=== PATIENT | male | born 1975 | race Caucasian/White ===

== ENCOUNTER 2019-09-27 19:32 | Emergency (ER) | payer MEDICARE, OTHER ==
[2019-09-27 19:53] VITALS: BP 121/69
--- NOTE | 2019-09-27 20:36 | UC ---
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 never had strep. no swollen glands or fever + parkisnons -no rash - History of Current Complaint Chief Complaint: UCGeneralIllness Stated Complaint: SORE THROAT Time Seen by Provider: 09/27/19 20:11 Pain Intensity: 5 - Allergies/Home Medications Allergies/Adverse Reactions: Allergies Allergy/AdvReac Type Severity Reaction Status Date / Time Penicillins Allergy Intermediate Hives Verified 09/27/19 19:52 Home Medications: Home Medications Carbidopa/Levodopa [Carbidopa-Levodopa 25-100 Tab] 1 each PO BID 09/27/19 [ History Confirmed 09/27/19] Pramipexole TAB* [Mirapex TAB*] 0.5 mg PO BEDTIME 09/27/19 [History Confirmed ] PMH/Surg Hx/FS Hx/Imm Hx Previously Healthy: Yes Neurological History: Other - parkinsons - Surgical History Surgical History: Yes Surgery Procedure, Year, and Place: appendix, R shoulder x 4, R knee, hernia - Social History Alcohol Use: None Substance Use Type: None Smoking Status (MU): Former Smoker Type: Cigarettes Length of Time of Smoking/Using Tobacco: 15 yrs Have You Smoked in the Last Year: No When Did the Patient Quit Smoking/Using Tobacco: 8 years ago Review of Systems All Other Systems Reviewed And Are Negative: Yes Constitutional: Positive: Negative Skin: Positive: Negative. Negative: Rash Eyes: Positive: Negative ENT: Positive: Sore Throat Respiratory: Positive: Negative. Negative: Cough Cardiovascular: Positive: Negative Gastrointestinal: Positive: Negative Genitourinary: Positive: Negative Motor: Positive: Negative Neurovascular: Positive: Negative Musculoskeletal: Positive: Negative Neurological: Positive: Negative Psychological: Positive: Negative Is Patient Immunocompromised?: No Physical Exam Triage Information Reviewed: Yes Appearance: Ill-Appearing - mildly ill appearing, very pleasant. has a cane Vital Signs: Initial Vital Signs Temp 98.1 F 09/27/19 19:47 Pulse 64 09/27/19 19:47 Resp 16 09/27/19 19:47 BP 121/69 09/27/19 19:47 Pulse Ox 100 09/27/19 19:47 Vital Signs Reviewed: Yes Eye Exam: Normal ENT: Positive: Pharyngeal erythema, TMs normal, Uvula midline. Negative: Nasal congestion, Nasal drainage, TM bulging, TM dull, TM red, Sinus tenderness Neck exam: Normal Neck: Positive: Supple, Nontender, No Lymphadenopathy Respiratory Exam: Normal Respiratory: Positive: Chest non-tender, Lungs clear, Normal breath sounds, No respiratory distress. Negative: Crackles, Rhonchi, Stridor, Wheezing Cardiovascular Exam: Normal Cardiovascular: Positive: RRR Abdominal Exam: Normal Musculoskeletal Exam: Normal Psychological Exam: Normal Skin Exam: Normal Throat Pain/Nasal Course/Dx - Course Course Of Treatment: rapid strep is negative -likely viral in origin -supportive treatnent -f/u sooner if sx increase or persist - Differential Dx/Diagnosis Differential Diagnosis/HQI/PQRI: Laryngitis, Pharyngitis, Tonsillitis, URI Provider Diagnosis: Pharyngitis Discharge ED - Sign-Out/Discharge Documenting (check all that apply): Patient Departure All imaging exams completed and their final reports reviewed: No Studies - Discharge Plan Condition: Stable Disposition: HOME Patient Education Materials: Pharyngitis (ED) Referrals: Too Hernandez MD [Primary Care Provider] - Additional Instructions: rapid strep is negative. Use tylenol/ibuprofen for pain and discomfort. Increase fluids and rest. - Billing Disposition and Condition Condition: STABLE Disposition: Home
== END 2019-09-27 21:30 | disposition home or self-care (01) ==
LOC: UCCORT 19:32
DX: J02.9 Acute pharyngitis, unspecified (principal); G20 Parkinson's disease; Z88.0 Allergy status to penicillin; Z87.891 Personal history of nicotine dependence
CPT/HCPCS: 87651; 99201; G0463

== ENCOUNTER 2023-11-06 07:17 | Inpatient (IN) ==
[2023-11-06] MEDS ORDERED: Ondansetron 4 mg VIAL 2 MG/ML 2 ml VIAL IV PRN (11:52)
[2023-11-06] MEDS ORDERED: LORazepam 2 mg VIAL 1 ml IV PUSH PRN ×2 (11:52)
[2023-11-06] MEDS: Carbidopa/Levodop 25/100 MG TAB PO SCH ×2 (13:12→16:58)
[2023-11-07] MEDS ORDERED: Influenza vaccine *QUAD* *2023-24* 0.5 ML SYRINGE IM ONE (09:00)
[2023-11-07] MEDS: Carbidopa/Levodop 25/100 MG TAB PO SCH ×3 (09:37→17:11)
[2023-11-08 06:05] VITALS: BP 119/66
[2023-11-08] MEDS: Carbidopa/Levodop 25/100 MG TAB PO SCH ×2 (08:12→11:47)
== END 2023-11-08 11:50 | disposition home or self-care (01) | DRG 880 ==
LOC: MEDTELE 07:17
PROVIDERS: ADMIT Psychiatry & Neurology Neurology; ATTEND Psychiatry & Neurology Neurology